=== PATIENT | female | born 1955 | race Hispanic/Latino ===

== ENCOUNTER → 2018-05-20 | Outpatient (CLI) | payer OTHER ==
[~2018-05-20] MED LIST: ESTROVEN MAX200 MCG PO; LEVAQUIN500 MG PO; LOSARTAN POTASS25 MG PO; PROMETHAZINE-D118 ML PO; VITAMINS PO
--- NOTE | 2018-05-31 08:28 | Diagnostic Imaging Report ---
#[id number] - MGSCRBIL #BILATERAL DIGITAL SCREENING MAMMOGRAM WITH CAD: 05/20/2018 CLINICAL: Routine screening. No prior exams were available for comparison. Current study contains 6 films. The tissue of both breasts is heterogeneously dense. This may lower the sensitivity of mammography. Current study was also evaluated with a Computer Aided Detection (CAD) system. There are benign calcifications in both breasts. No significant masses, calcifications, or other findings are seen in either breast. IMPRESSION: BENIGN There is no mammographic evidence of malignancy. A 1 year screening mammogram is recommended. The patient will be notified by letter of the results. Dakota Atherton Jr. Jong santacruz/dawn:05/30/2018 13:21:52 Systems Analysis Manager: Alexia BOLAND)(M), [facility] letter sent: Normal Exam Mammogram BI-RADS: 2 Benign
== END ==
LOC: MAMMO 08:10
PROVIDERS: ATTEND Family Medicine
DX: Z12.31 Encounter for screening mammogram for malignant neoplasm of breast (principal)
CPT/HCPCS: 77067

== ENCOUNTER 2018-09-13 09:34 | Inpatient (IN) | payer OTHER ==
[~2018-09-13] VITALS: Ht 162.6 cm; Wt 69.2 kg
--- OUTSIDE RECORDS SUMMARY | 2018-09-13 09:37 | XMS REPORT | Clinical Summary ---
Author Author [facility] Address Unknown Phone Unavailable Care Team Providers Care Deputy Jailer Name Role Phone Nik Pinon MD PCP Allergies No Known Allergies Medications End Date Status Medication Sig Dispensed Refills Start Date Active losartan (COZAAR) 50 MG Take 50 mg by 0 tablet mouth daily. Active cholecalciferol, vitamin Take 1,000 0 D3, (VITAMIN D3) 1,000 Units by unit tablet mouth daily. Active SOY ISOFLA/BLK COHOSH/MAG Take 1 tablet 0 BARK (ESTROVEN ORAL) by mouth daily. Active loratadine (CLARITIN) 10 Take 10 mg by 0 mg tablet mouth daily. Active CALCIUM CITRATE/VITAMIN Take 1 tablet 0 D3 (CALCIUM CITRATE + by mouth ORAL) daily. Active Problems Problem Noted Date Chest pain in adult 09/08/2016 Immunizations Name Dates Previously Given Next Due Pneumococcal Conjugate 09/09/2016 13-Valent Social History Date Tobacco Use Types Packs/Day Years Used Never Smoker Alcohol Use Drinks/Week oz/Week Comments No Sex Assigned at Date Recorded Not on file Industry Job Start Date Occupation Not on file Not on file Not on file Travel End Travel History Travel Start No recent travel history available. Last Filed Vital Signs Not on file Plan of Treatment Health Maintenance Due Date Last Done Comments CERVICAL CANCER SCREENING 1975 BREAST CANCER SCREENING 2004 COLON CANCER SCREENING 2004 SHINGLES VACCINES (#1) 2004 INFLUENZA VACCINE 01/19/2018 Results Not on fileafter 09/12/2017 Insurance Payer Benefit Subscriber ID Type Phone Address Plan / Group CIGNA CIGNA xxxxxxxxxxx HMO HMO/POS [address] (Home) [place] [address] Advance Directives Patient has advance care planning documents on file. For more information, jesica e contact: [facility] Green [address] [place] [address]
--- OUTSIDE RECORDS SUMMARY | 2018-09-13 09:37 | XMS REPORT ---
Author Author [facility] Address Unknown Phone Unavailable Care Team Providers Care Jacquard Loom Weaver Name Role Phone DUC ANGEL Unavailable Unavailable Problems This patient has no known problems. Allergies, Adverse Reactions, Alerts This patient has no known allergies or adverse reactions. Medications This patient has no known medications. Results Test Description Test Time Test Comments Text Results Atomic Results Result Comments MAMMOGRAPHY DIGITAL SCR BILAT 2018-05-20 09:06:00 [place] [address] Patient Name: STONEY BALDWIN MR #: [id number] : 1955 Age/Sex: 62/F Req #: [id number] Adm Physician: Ordered by: DUC ANGEL MD Report #: [id number] Location: MAMMO Room/Bed: Procedure: [id number] MG/MAMMOGRAPHY DIGITAL SCR BILAT Exam Date: 05/20/18 Exam Time: 0833 REPORT STATUS: Signed #[id number] - MGSCRBIL #BILATERAL DIGITAL SCREENING MAMMOGRAM WITH CAD: 05/20/2018 CLINICAL: Routine screening. No prior exams were available for comparison. Current study contains 6 films. The tissue of both breasts is heterogeneously dense. This may lower the sensitivity of mammography. Current study was also evaluated with a Computer Aided Detection (CAD) system. There are benign calcifications in both breasts. No significant masses, calcifications, or other findings are seen in either breast. IMPRESSION: BENIGN There is no mammographic evidence of malignancy. A 1 year screening mammogram is recommended. The patient will be notified by letter of the results. Sam santacruz/carol:05/30/2018 13:21:52 Manager Lsw: Alexia BOLAND)(Joseluis), [facility] letter sent: Normal Exam Mammogram BI-RADS: 2 Benign Dictated By: SAM ZAMORANO DO 1321 Transcribed By: CAROL on 05/30/18 1321 COPY TO: DUC ANGEL MD
[2018-09-13] MEDS ORDERED: ASPIRIN 325 MG TAB PO ONE (10:00)
[2018-09-13] MEDS ORDERED: ONDANSETRON HCL INJ 2MG/ML 2ML 2 MG/ML VIAL IV STA (10:07)
[2018-09-13] MEDS ORDERED: ONDANSETRON HCL INJ 2MG/ML 2ML 2 MG/ML VIAL ONE (10:14)
[2018-09-13 10:23] LABS: BASOPHILS % 0.3 % (0.0-1.0); EOSINOPHILS # (AUTO) 0.1 (0.0-0.4); EOSINOPHILS % 1.5 % (0.0-6.0); HEMATOCRIT 40.9 % (34.2-44.1); HEMOGLOBIN 13.5 g/dL (12.0-16.0); LYMPHOCYTES # (AUTO) 1.9 (1.0-3.2); LYMPHOCYTES % 26.4 % (18.0-39.1); MEAN CORPUSCULAR HEMOGLOBIN 31.3 pg (28-32); MEAN CORPUSCULAR VOLUME 94.7 fL (81-99); MONOCYTES # (AUTO) 0.7 (0.2-0.8); NEUTROPHILS # (AUTO) 4.5 (2.1-6.9); NEUTROPHILS % 62.2 % (38.7-80.0); PLATELET COUNT 254 x10e3/uL (140-360); RED BLOOD COUNT 4.32 x10e6/uL (3.6-5.1); RED CELL DISTRIBUTION WIDTH 15.1 % (11.7-14.4)
[2018-09-13 10:34] LABS: INR 0.88; PROTHROMBIN TIME 12.4 seconds (11.9-14.5)
[2018-09-13 10:35] LABS: PARTIAL THROMBOPLASTIN TIME 27.4 seconds (23.8-35.5)
[2018-09-13 10:41] LABS: ALANINE AMINOTRANSFERASE 27 IU/L (0-55); ALBUMIN 3.3 g/dL (3.5-5.0); ALBUMIN/GLOBULIN RATIO 1.1 (0.8-2.0); ALKALINE PHOSPHATASE 74 IU/L (40-150); ANION GAP 11.7 mmol/L (8-16); BLOOD UREA NITROGEN 13 mg/dL (7-26); BUN/CREATININE RATIO 16 (6-25); CALCIUM 9.1 mg/dL (8.4-10.2); CARBON DIOXIDE 25 mmol/L (22-29); CHLORIDE 104 mmol/L (98-107); CREATINE KINASE 109 IU/L (29-168); CREATININE, SERUM 0.81 mg/dL (0.57-1.11); EST GLOMERULAR FILTRATION RATE > 60 ML/MIN (60-); GLUCOSE 91 mg/dL (74-118); POTASSIUM 3.7 mmol/L (3.5-5.1); SODIUM 137 mmol/L (136-145)
--- NOTE | 2018-09-13 11:27 | Diagnostic Imaging Report ---
EXAMINATION: Head CT HISTORY: Left face and neck numbness, evaluate for acute infarct COMPARISON: None. TECHNIQUE: Multidetector axial images were obtained without contrast from the foramen magnum to the vertex . The images were reconstructed using brain and bone algorithms. Thin section brain images were reformatted into coronal and sagittal planes. Image quality: Motion/streaking artifact limits the evaluation of the skull base and posterior cranial fossa. Dose modulation, iterative reconstruction, and/or weight based adjustment of the mA/kV was utilized to reduce the radiation dose to as low as reasonably achievable. FINDINGS: Parenchyma: 1. No abnormal densities. 2. No mass or hemorrhage. No CT evidence of acute territorial vascular insult. Extra-axial spaces:No abnormal density. No extra-axial fluid collections Brain volume: Normal for age. Ventricles: No hydrocephalus or displacement. Arteries: No density suggestive of thrombus. Dural sinuses: No abnormal density. Extra-axial spaces: No abnormal density. Foramen magnum: No mass, Chiari malformation, or basilar invagination. Sella: No obvious mass. Paranasal/mastoid sinuses: Postoperative changes in the right mastoid region. Hypo pneumatization, sclerosis and opacification of the left mastoid air cells, which may be related to chronic inflammatory process. Skull/Scalp: No lytic or blastic lesions. No fractures. IMPRESSION: No acute intracranial abnormalities, particularly no hemorrhage or acute cortical infarct. Signed by: Dr. Debra David M.D. on 09/13/2018 11:24 AM
--- NOTE | 2018-09-13 11:44 | Diagnostic Imaging Report ---
EXAM: CHEST 2 VIEWS, PA and lateral DATE: 09/13/2018 Time stamp on exam: 10:45 AM INDICATION: Chest pain COMPARISON: None FINDINGS: LINES/TUBES: None LUNGS: No consolidations or edema. PLEURA: No effusions or pneumothorax. HEART AND MEDIASTINUM: Normal size and contour. BONES AND SOFT TISSUES: No acute findings. Clips in the upper abdomen. IMPRESSION: No acute thoracic abnormality. Signed by: Dr. Dakota Singh DO on 09/13/2018 11:40 AM
--- OUTSIDE RECORDS SUMMARY | 2018-09-13 12:21 | XMS REPORT | Clinical Summary ---
Author Author [facility] Organization [facility] Address Unknown Phone Unavailable Care Team Providers Care Wound Care Nurse Name Role Phone Nik Pinon MD PCP [...] CIGNA xxxxxxxxxxx HMO HMO/POS [address] (Home) [place] [address] Advance Directives Patient has advance care planning documents on file. For more information, jesica e contact: [facility] Green [address] [place] [address]
[2018-09-13] MEDS ORDERED: GADOBENATE DIMEGLUMINE 1 ML IV ONE (12:27)
[2018-09-13] MEDS ORDERED: SODIUM CHLORIDE 0.9% 50ML 50 ML ONE (12:27)
--- NOTE | 2018-09-13 16:37 | Diagnostic Imaging Report ---
EXAMINATION: Brain MRI and MR angiogram of the [place] and Neck CLINICAL HISTORY: Left facial numbness and weakness. COMPARISON: Head CT 09/13/2018 TECHNIQUE: Brain: Sagittal T2; axial DWI, T2, FLAIR, T1-IR, T2 gradient echo; coronal FLAIR. MRAs: 3D TOF and 2D-TOF images were obtained of the [place] and neck. 3-D iygv-ov-wkofkw post contrast images of the neck were obtained as well. Intravenous contrast: 13 mL of MultiHance BRAIN MRI FINDINGS: Parenchyma: 1. No abnormal signal intensity 2. No mass, hemorrhage, acute or chronic infarcts. Skull: Unremarkable. Vessels: Expected flow voids present in the major arteries and dural sinuses. Extra-axial spaces: No abnormal signal intensity or mass effect. Brain volume: Within normal limits for age. Ventricles: No hydrocephalus or displacement. Foramen magnum: Unremarkable. Sella: Unremarkable. Paranasal / mastoid sinuses: No significant inflammatory disease. MRA OF THE [place] : The distal internal carotid, distal vertebral, basilar, and cerebral arteries are patent. No significant stenosis, occlusion, aneurysm, or arteriovenous malformation is seen. Anatomic variation: Anterior Communicating Artery: Patent Posterior Communicating Arteries: Patent bilaterally, with origin of the bilateral canal tender. Vertebral arteries: Codominant the right PICA is not well visualized. MRA OF THE NECK: If present, stenosis of the carotid bulbs is measured based on NASCET criteria i.e area of maximum stenosis compared to the cervical ICA distal to the bulb. Aortic arch and origin of the vessels: Unremarkable. Right Carotid Artery: The common carotid, carotid bulb, internal and external carotid arteries at the level of the neck are normal in caliber, and patent, no evidence of stenoses. Left Carotid Artery: The common carotid, carotid bulb, internal and external carotid arteries at the level of the neck are normal in caliber, and patent, no evidence of stenoses. Vertebral Arteries: Both are normal in morphology and caliber. Both are codominant. No significant stenosis is seen. IMPRESSION: 1. Normal brain MRI, particularly no acute infarct. 2. Normal MR angiogram of the [place] and neck. Particularly no large vessel occlusion or hemodynamically significant stenoses is seen. Signed by: Dr. Debra David M.D. on 09/13/2018 4:34 PM
--- NOTE | 2018-09-13 16:37 | Diagnostic Imaging Report ---
EXAMINATION: Brain MRI and MR angiogram of the [place] and Neck CLINICAL HISTORY: Left facial numbness and weakness. COMPARISON: Head CT 09/13/2018 TECHNIQUE: Brain: Sagittal T2; axial DWI, T2, FLAIR, T1-IR, T2 gradient echo; coronal FLAIR. MRAs: 3D TOF and 2D-TOF images were obtained of the [place] and neck. 3-D dcjm-rj-ckezic post contrast images of the neck were obtained as well. Intravenous contrast: 13 mL of MultiHance BRAIN MRI FINDINGS: Parenchyma: 1. No abnormal signal intensity 2. No mass, hemorrhage, acute or chronic infarcts. Skull: Unremarkable. Vessels: Expected flow voids present in the major arteries and dural sinuses. Extra-axial spaces: No abnormal signal intensity or mass effect. Brain volume: Within normal limits for age. Ventricles: No hydrocephalus or displacement. Foramen magnum: Unremarkable. Sella: Unremarkable. Paranasal / mastoid sinuses: No significant inflammatory disease. MRA OF THE [place] OF [place] : The distal internal carotid, distal vertebral, basilar, and cerebral arteries are patent. No significant stenosis, occlusion, aneurysm, or arteriovenous malformation is seen. Anatomic variation: Anterior Communicating Artery: Patent Posterior Communicating Arteries: Patent bilaterally, with origin of the bilateral computer game designer. Vertebral arteries: Codominant the right PICA is not well visualized. MRA OF THE NECK: If present, stenosis of the carotid bulbs is measured based on NASCET criteria i.e area of maximum stenosis compared to the cervical ICA distal to the bulb. Aortic arch and origin of the vessels: Unremarkable. Right Carotid Artery: The common carotid, carotid bulb, internal and external carotid arteries at the level of the neck are normal in caliber, and patent, no evidence of stenoses. Left Carotid Artery: The common carotid, carotid bulb, internal and external carotid arteries at the level of the neck are normal in caliber, and patent, no evidence of stenoses. Vertebral Arteries: Both are normal in morphology and caliber. Both are codominant. No significant stenosis is seen. IMPRESSION: 1. Normal brain MRI, particularly no acute infarct. 2. Normal MR angiogram of the [place] and neck. Particularly no large vessel occlusion or hemodynamically significant stenoses is seen. Signed by: Dr. Debra David M.D. on 09/13/2018 4:34 PM
--- NOTE | 2018-09-13 16:37 | Diagnostic Imaging Report ---
EXAMINATION: Brain MRI and MR angiogram of the [place] of [place] and Neck CLINICAL HISTORY: Left facial numbness and weakness. COMPARISON: Head CT 09/13/2018 TECHNIQUE: Brain: Sagittal T2; axial DWI, T2, FLAIR, T1-IR, T2 gradient echo; coronal FLAIR. MRAs: 3D TOF and 2D-TOF images were obtained of the [place] of [place] and neck. 3-D tskp-vq-lrovct post contrast images of the neck were obtained as well. Intravenous contrast: 13 mL of MultiHance BRAIN MRI FINDINGS: Parenchyma: 1. No abnormal signal intensity 2. No mass, hemorrhage, acute or chronic infarcts. Skull: Unremarkable. Vessels: Expected flow voids present in the major arteries and dural sinuses. Extra-axial spaces: No abnormal signal intensity or mass effect. Brain volume: Within normal limits for age. Ventricles: No hydrocephalus or displacement. Foramen magnum: Unremarkable. Sella: Unremarkable. Paranasal / mastoid sinuses: No significant inflammatory disease. MRA OF THE [place] OF [place] : The distal internal carotid, distal vertebral, basilar, and cerebral arteries are patent. No significant stenosis, occlusion, aneurysm, or arteriovenous malformation is seen. Anatomic variation: Anterior Communicating Artery: Patent Posterior Communicating Arteries: Patent bilaterally, with origin of the bilateral zig zag spring machine operator. Vertebral arteries: Codominant the right PICA is not well visualized. MRA OF THE NECK: If present, stenosis of the carotid bulbs is measured based on NASCET criteria i.e area of maximum stenosis compared to the cervical ICA distal to the bulb. Aortic arch and origin of the vessels: Unremarkable. Right Carotid Artery: The common carotid, carotid bulb, internal and external carotid arteries at the level of the neck are normal in caliber, and patent, no evidence of stenoses. Left Carotid Artery: The common carotid, carotid bulb, internal and external carotid arteries at the level of the neck are normal in caliber, and patent, no evidence of stenoses. Vertebral Arteries: Both are normal in morphology and caliber. Both are codominant. No significant stenosis is seen. IMPRESSION: 1. Normal brain MRI, particularly no acute infarct. 2. Normal MR angiogram of the [place] of [place] and neck. Particularly no large vessel occlusion or hemodynamically significant stenoses is seen. Signed by: Dr. Debra David M.D. on 09/13/2018 4:34 PM
--- NOTE | 2018-09-13 20:00 | NUR ---
pt received at time. no ss of distress noted. no co pain at time. tele in place. will cont to follow poc. call yoon within reach.
--- NOTE | 2018-09-13 20:39 | History and Physical ---
This patient is a 63-year-old female with a history of hypertension, comes in with left-sided paresthesias and numbness. HISTORY OF PRESENTING ILLNESS: A 63-year-old young lady with a history of hypertension, was in her usual state of health. About one week ago, the patient started off with symptoms of nausea and vomiting, reflux esophagitis, and tenderness in the midsternal area after bouts of vomiting. The patient had gone to a and a wake and came back and this morning, the patient woke up, felt nauseous, started to eat her normal breakfast and the patient developed left-sided tingling and also hyperesthesias and paresthesias in the face and the left upper extremities, came into the hospital for chest pain and TIA-like symptoms. PAST MEDICAL HISTORY: History of hypertension and history of rosacea. MEDICATIONS: She takes at home are losartan 50 mg. The patient also has an additional history of impaired glucose tolerance. The last hemoglobin A1c was 5.9. Lipids, last LDL was 109. PAST SURGICAL HISTORY: Includes: 1. History of x2. 2. Ear reconstruction. 3. The patient also had a ganglion cyst removal. SOCIAL HISTORY: No EtOH, no IV drug abuse, and no history of smoking. ALLERGIES: NO DRUG ALLERGIES NOTED. REVIEW OF SYSTEMS: Negative for chest pain. Positive shortness of breath. Positive for nausea and vomiting. No diarrhea. No constipation. No rectal bleeding. No hematochezia. No hematemesis. No diplopia. No blurry vision. No headaches. PHYSICAL EXAMINATION: VITAL SIGNS: 97.7 temperature, pulse of 76, respirations of 14, blood pressure is 168/98 on arrival, pulse oximetry of 100%. HEENT: Normocephalic, atraumatic. Pupils are reactive to light and accommodation. CVS: S1, S2 normal. Regular rate and rhythm. ABDOMEN: Nontender and nondistended. EXTREMITIES: No clubbing, no cyanosis, no edema. Exam of the cervical neck area shows tenderness in the left paraspinal muscles. LABORATORY DATA: Initial white count of 7.2, hemoglobin of 13.5, hematocrit of 40.9. Chemistry shows sodium of 137, potassium 3.7, BUN of 18, and creatinine 0.81. Troponins have been negative first set. BNP was 21.4. Coags were normal. Microbiology, none done. IMAGING STUDIES: A head MRA shows normal brain MRI, particularly no infarcts. Normal MRI angiogram of the [place]. Chest x-ray shows no acute thoracic abnormalities. Brain CT shows no acute intracranial abnormalities. Neck MRA shows normal MR angiogram and brain MRI shows normal MRI. ASSESSMENT: 1. Left-sided facial paresthesias. 2. Rule out transient ischemic attack. 3. History of hypertension. Restart her antihypertensive. 4. I will go ahead and do an echocardiogram to rule out embolic phenomenon. 5. Troponins have been trending negative. Chest pain has been ruled out. Acute coronary syndrome has been ruled out. We will continue to monitor the patient. Three sets of troponins will be done. The patient can be discharged home early in the morning. Further recommendation per clinical course. Continue to monitor the patient on telemetry while in the ER. MD FILIPPO Orantes/MODL /[id number]
[2018-09-13 20:43] VITALS: BP 125/74
[2018-09-13] MEDS: LOSARTAN POTASSIUM 25 MG TAB PO SCH (21:21)
[2018-09-13] MEDS ORDERED: CLARITIN-D 241 EACH PO (21:25)
--- NOTE | 2018-09-13 21:37 | NUR ---
spoke to dr medina at time in regards to downgrade from [facility]. new orders received. charge nurse er notified.
[2018-09-13 21:38] VITALS: BP 125/74
--- NOTE | 2018-09-13 21:56 | NUR ---
blood collected and sent to lab. pt tolerated well. no distress noted. call yoon within reach.
[2018-09-13 22:44] LABS: CHOL/HDL RATIO 3.4 (3.0-3.6)
--- NOTE | 2018-09-13 23:27 | NUR ---
pt transferred to rm 113 via stretcher. no ss of distress noted. tele in place.
[2018-09-14] VITALS: BP 118/59
[2018-09-14 04:00] VITALS: BP 141/64
--- NOTE | 2018-09-14 07:34 | NUR ---
Received patient awake in bed no signs of distress. Call light in reach, will continue to monitor.
[2018-09-14 08:16] VITALS: BP 102/57
[2018-09-14 08:19] VITALS: BP 121/63
[2018-09-14] MEDS ORDERED: ASPIRIN 325 MG TAB EC PO SCH (09:00)
[2018-09-14] MEDS ORDERED: LOSARTAN POTASSIUM 25 MG TAB PO SCH (09:00)
[2018-09-14] MEDS: LOSARTAN POTASSIUM 25 MG TAB PO SCH (09:34)
[2018-09-14 10:44] VITALS: BP 121/63
[2018-09-14 12:15] VITALS: BP 128/69
--- NOTE | 2018-09-14 12:39 | NUR ---
MARYELLEN SPOKE TO DR. MACHUCA REGARDING PLAN OF CARE AND STATUS. PER DR. MACHUCA PATIENT SHOULD BE OBSERVATION STATUS AND NOT INPATIENT. PER DR. MACHUCA ORDERS. INPATIENT ORDER CANCELLED AND OBSERVATION ORDER ENTERED. MARYELLEN EVANS NOTIFIED TO CHANGE STATUS IN SYSTEM.
--- NOTE | 2018-09-14 12:55 | NUR ---
Removed IV, catheter tip intact and pressure dressing applied.
--- NOTE | 2018-09-14 13:10 | NUR ---
Patient discharged from facility. Patient gathered all personal belongings including discharge paperwork and follow up information. Patient left unit in wheelchair and went home via private auto. No signs of distress when leaving facility.
--- NOTE | 2018-09-14 13:54 | Progress Note ---
DATE: SUBJECTIVE: The patient came in with TIA symptoms yesterday. The resolution of complete symptoms at this time. The patient's workup has so far been negative. The patient is feeling well. No complaints. No chest pain. No shortness of breath and doing well. PHYSICAL EXAMINATION: VITAL SIGNS: Temperature is 98.2, pulse of 68, respiration of 22, blood pressure 97/65, pulse oximetry of 100 percent. HEENT: Normocephalic, atraumatic. Pupils are reactive to light and accommodation. CVS: S1, S2 normal. Regular rate and rhythm. ABDOMEN: Nontender, nondistended. EXTREMITIES: No clubbing, no cyanosis, no edema. LABORATORY DATA: Telemetry shows normal sinus rhythm without any arrhythmias. The patient's laboratory values from yesterday all normal. Chemistries normal. Troponin's have trended to be negative. HDL is 36 with an LDL of 59. ASSESSMENT: 1. Paresthesia, hyperesthesias. 2. Rule out transient ischemic attack/cerebrovascular accident. 3. Hypertension, controlled. 4. Hyperlipidemia, controlled. 5. History of impaired glucose tolerance. The patient needs to continue with the diet. PLAN: Plan today would be to followup with echocardiogram. Once echo is done, the patient can be discharged home. MRI and MRA of the neck and brain have been normal. The patient will follow up with her primary care physician in 1 to 2 days. MD WAI OrantesJ/MODL /[id number]
== END 2018-09-14 13:08 | disposition home or self-care (01) | DRG 93 ==
LOC: ER 09:34 → ERHOLD 11:58 → MED/SURG 23:30
PROVIDERS: ADMIT Family Medicine; ATTEND Family Medicine
DX: R20.3 Hyperesthesia (principal); I10 Essential (primary) hypertension; E78.5 Hyperlipidemia, unspecified
CPT/HCPCS: 36415; 70450; 70544; 70549; 70551; 71046; 80053; 80061; 82550; 82553; 82948; 83880; 84484; 85025; 85610; 85730; 93005; 93306; 99284; J2405

== ENCOUNTER → 2018-11-18 | Day surgery (SDC) | payer OTHER ==
[2018-11-15 11:42] LABS: BASOPHILS % 0.1 % (0.0-1.0); EOSINOPHILS # (AUTO) 0.1 (0.0-0.4); EOSINOPHILS % 1.8 % (0.0-6.0); HEMATOCRIT 40.4 % (34.2-44.1); HEMOGLOBIN 13.4 g/dL (12.0-16.0); LYMPHOCYTES # (AUTO) 1.7 (1.0-3.2); MEAN CORPUSCULAR HEMOGLOBIN 31.8 pg (28-32); MEAN CORPUSCULAR HGB CONC 33.2 g/dL (31-35); MONOCYTES # (AUTO) 0.6 (0.2-0.8); MONOCYTES % 7.7 % (4.4-11.3); NEUTROPHILS # (AUTO) 4.9 (2.1-6.9); NEUTROPHILS % 67.1 % (38.7-80.0); PLATELET COUNT 245 x10e3/uL (140-360); RED BLOOD COUNT 4.21 x10e6/uL (3.6-5.1); RED CELL DISTRIBUTION WIDTH 14.7 % (11.7-14.4)
[2018-11-15 12:01] LABS: ANION GAP 8.2 mmol/L (8-16); BLOOD UREA NITROGEN 14 mg/dL (7-26); BUN/CREATININE RATIO 18 (6-25); CALCIUM 9.1 mg/dL (8.4-10.2); CARBON DIOXIDE 28 mmol/L (22-29); CHLORIDE 107 mmol/L (98-107); CREATININE, SERUM 0.77 mg/dL (0.57-1.11); EST GLOMERULAR FILTRATION RATE > 60 ML/MIN (60-); GLUCOSE 89 mg/dL (74-118); POTASSIUM 4.2 mmol/L (3.5-5.1); SODIUM 139 mmol/L (136-145)
--- NOTE | 2018-11-15 12:29 | Diagnostic Imaging Report ---
EXAMINATION: CHEST 2 VIEWS INDICATION: Pre-admit. COMPARISON: None FINDINGS: TUBES and LINES: None. LUNGS: Lungs are moderately inflated. There is no evidence of pneumonia or pulmonary edema. PLEURA: No pleural effusion or pneumothorax. HEART AND MEDIASTINUM: The cardiomediastinal silhouette is unremarkable. There are atherosclerotic calcifications within the aorta. BONES AND SOFT TISSUES: No acute osseous abnormality. UPPER ABDOMEN: No free air under the diaphragm. There are cholecystectomy clips. IMPRESSION: No acute radiographic abnormality. Signed by: Dr. Charlee Marrero MD on 11/15/2018 12:26 PM
[~2018-11-18] MED LIST changes: +ALLEGRA ALLERGY60 MG PO; +BUPIVACAINE 0.25%/EPI 30ML SDV INJ ONE; +CLARITIN-D 241 EACH PO; +DEXAMETHASONE SOD PHOS INJ 4 MG/ML VIAL ONE; +FENTANYL CITRATE/PF 100MCG/2 ML INJ ONE; +HYDROCODONE/APAP 7.5MG-325MG 1 EA TAB ONE; +LIDOCAINE HCL 2% LOCAL INJ 5 ML SDV VIAL INJ ONE; +MEPERIDINE HCL INJ 25 MG/ML VIAL ONE; +MIDAZOLAM HCL 2 MG/2 ML VIAL ONE; +ONDANSETRON HCL INJ 2MG/ML 2ML 2 MG/ML VIAL ONE; +PROPOFOL IV EMULSION 10 MG/ML 20 ML VIAL ONE; +SEVOFLURANE INHAL SOLN 250 ML PEN BTL ONE; +probiotic PO
--- OUTSIDE RECORDS SUMMARY | 2018-11-18 07:06 | XMS REPORT | Clinical Summary ---
Author Author [facility] Address Unknown Phone Unavailable Care Team Providers Care Dental Nurse Name Role Phone Nik Pinon MD [...] Health Maintenance Due Date Last Done Comments BREAST CANCER SCREENING 2004 COLON CANCER SCREENING 2004 SHINGLES VACCINES (#1) 2004 INFLUENZA VACCINE 01/19/2019 Results Not on fileafter 11/17/2017 Insurance Type Payer Benefit Subscriber ID Effective Phone Address Plan / Dates Group HMO CIGNA CIGNA xxxxxxxxxxx 2002-P HMO/POS resent Advance Directives Patient has advance care planning documents on file. For more information, jesica hopson contact: Fco Green [address] [place] [address]
--- NOTE | 2018-11-18 12:29 | Operative Report ---
DATE OF PROCEDURE: 11/18/2018 SURGEON: Robbi Green MD PREOPERATIVE DIAGNOSES: Masses of the neck x2 and mass of the left elbow. POSTOPERATIVE DIAGNOSES: Masses of the neck x2 and mass of the left elbow. OPERATION PERFORMED: Excision of masses of the neck x2 and left elbow. ANESTHESIA: General. COMPLICATIONS: None. ESTIMATED BLOOD LOSS: Minimal. DESCRIPTION OF PROCEDURE: With the patient lying in bed in the supine position under good general anesthesia. The neck and left hand were prepped with Betadine solution and draped in the usual manner. The area overlying all three lesions were then infiltrated with 0.25% Marcaine with epinephrine. The neck lesions were done first. An elliptical incision was made to include the skin overlying the masses, which were a cystic in nature and this was slowly and carefully from the subcutaneous tissue and totally and completely removed, and sent for pathological examination. The two neck lesions were then closed with subcutaneous 4-0 Vicryl and the skin was closed with subcuticular 5-0 Vicryl. Benzoin, Steri-Strips, and Band-Aids were applied. An incision was made in the anterior crease of the left elbow, there was a lipomatous mass present; incision was taken into the subcutaneous tissue and the lipoma was then slowly and carefully from all the surrounding structures all the way down to the muscle, was completely resected and sent for pathological examination. Hemostasis was ascertained. The skin was then reapproximated with interrupted sutures of 4-0 silk. Dressings were applied. The sponge, lap, and needle counts were correct. The patient tolerated the procedure well and returned to the recovery room in stable condition. MD HARVINDER RosenR/MODL /[id number]
[2018-11-18 13:25] VITALS: BP 133/82
== END | disposition home or self-care (01) ==
LOC: OR 06:59
PROVIDERS: ATTEND Surgery
DX: D17.9 Benign lipomatous neoplasm, unspecified (principal); L72.0 Epidermal cyst; I10 Essential (primary) hypertension; Z88.1 Allergy status to other antibiotic agents; Z88.8 Allergy status to other drugs, medicaments and biological substances; Z01.810 Encounter for preprocedural cardiovascular examination; Z01.812 Encounter for preprocedural laboratory examination; Z01.818 Encounter for other preprocedural examination
CPT/HCPCS: 11421 ×2; 12041; 24076; 36415; 71046; 80048; 85025; 88304; 93005; J1100; J2001; J2175; J2250; J2405; J2704